=== PATIENT | female | born 1985 | race Two or more races ===

== ENCOUNTER 2023-11-02 08:30 | Day surgery (SDC) | payer BC, OTHER ==
[~2023-11-02 08:30] MED LIST: Dexamethasone 4 MG/ML 5 ML MDV ONE; Ondansetron 4 MG/2 ML SDV ONE; Propofol 200 MG/20 ML SDV ONE; Sodium Chloride 0.9% 10 ML Syringe FLUSH PRN; Sodium Chloride 0.9% 10 ML Syringe FLUSH SCH; ceFAZolin 2 GM Vial ONE; fentaNYL 100 MCG/2 ML SDV ONE
[2023-11-02] MEDS ORDERED: Lidocaine 1% 4 ML ONE (08:38)
[2023-11-02] MEDS: Lactated Ringers 1,000 ML IV SCH (09:10)
[2023-11-02] MEDS ORDERED: HYDROmorphone 0.5 MG/0.5 ML Syringe IVPUSH PRN (09:24)
[2023-11-02] MEDS ORDERED: Ondansetron 4 MG/2 ML SDV IVPUSH PRN (09:24)
[2023-11-02] MEDS ORDERED: EPINEPHrine 1 MG/ML SDV ONE (09:28)
[2023-11-02] MEDS ORDERED: Midazolam 1 MG/ML 2 ML SDV ONE (09:28)
[2023-11-02] MEDS ORDERED: dexmedeTOMIDine HCl 200 MCG/2 ML SDV ONE (11:23)
[2023-11-02] MEDS: EPINEPHrine 1 MG/ML SDV ONE (11:41)
[2023-11-02] MEDS ORDERED: Ketorolac 30 MG/ML SDV ONE (11:42)
[2023-11-02] MEDS: Bupivacaine 0.25% 10 ML SDV ONE (11:48)
[2023-11-02] MEDS: fentaNYL 100 MCG/2 ML SDV IVPUSH PRN (12:19)
[2023-11-02] MEDS: Acetaminophen/HYDROcodone 325-5 MG Tab PO PRN (13:37)
[2023-11-02 13:58] VITALS: BP 105/70; PULSE 75
== END 2023-11-02 13:45 | disposition home or self-care (01) ==
LOC: JD.SDS 08:30
PROVIDERS: ATTEND Orthopaedic Surgery
DX: M22.42 Chondromalacia patellae, left knee (principal); F32.A Depression, unspecified; F41.9 Anxiety disorder, unspecified; Z79.899 Other long term (current) drug therapy; Z88.8 Allergy status to other drugs, medicaments and biological substances
CPT/HCPCS: 29877; A9270; J0171; J0665; J0690; J1100; J1885; J2250; J2405; J2704; J3010; J7120; 01400; J3490

== ENCOUNTER 2024-01-07 20:53 | Emergency (ER) | payer OTHER ==
[2024-01-07 21:10] VITALS: BP 132/74; PULSE 77
[2024-01-07 21:46] LABS: BASOPHILS PERCENT AUTO 0.6 % (0.0-1.0); EOSINOPHILS ABSOLUTE AUTO 0.3 K/mm3 (0.0-0.4); HEMATOCRIT 33.5 % (37.0-47.0); HEMOGLOBIN 10.5 gm/dl (12.0-16.0); IMMATURE GRAN ABSOLUTE AUTO 0.01 K/mm3 (0.00-0.05); IMMATURE GRAN PERCENT AUTO 0.2 % (0.0-0.4); LYMPHOCYTES ABSOLUTE AUTO 2.3 K/mm3 (1.0-4.8); LYMPHOCYTES PERCENT AUTO 36.4 % (24.0-44.0); MEAN CORPUSCULAR HEMOGLOBIN 25.5 pg (28.0-32.0); MEAN CORPUSCULAR HGB CONC 31.3 g/dl (32.0-36.0); MEAN CORPUSCULAR VOLUME 81.5 fl (83.0-99.0); MEAN PLATELET VOLUME 9.9 fl (9.4-12.3); MONOCYTES ABSOLUTE AUTO 0.5 K/mm3 (0.0-0.8); MONOCYTES PERCENT AUTO 7.2 % (0.0-8.0); NEUTROPHILS ABSOLUTE AUTO 3.2 K/mm3 (1.8-7.7); NEUTROPHILS PERCENT AUTO 50.6 % (41.0-71.0); PLATELET COUNT,PLT 224 K/mm3 (150-400); RED BLOOD CELL COUNT 4.11 M/mm3 (4.10-5.30); WHITE BLOOD CELL COUNT,WBC 6.37 K/mm3 (3.9-11.3)
== END 2024-01-07 22:26 | disposition home or self-care (01) ==
LOC: JD.ED 20:53
DX: R04.0 Epistaxis (principal); Z79.899 Other long term (current) drug therapy; Z88.8 Allergy status to other drugs, medicaments and biological substances
CPT/HCPCS: 36415; 85025; 99283

== ENCOUNTER 2024-01-27 06:15 | Day surgery (SDC) | payer OTHER ==
[~2024-01-27 06:15] MED LIST changes: +Ketorolac 30 MG/ML SDV ONE; +Lactated Ringers 1,000 ML ONE; +Midazolam 1 MG/ML 2 ML SDV ONE
[2024-01-27] MEDS: Lactated Ringers 1,000 ML IV SCH (06:35)
[2024-01-27] MEDS: Scopalamine 1mg/3day Transdermal Patch TRDERM ONE (06:51)
[2024-01-27 06:58] LABS: INR 0.97; PROTHROMBIN TIME 10.3 SECONDS (9.7-12.0)
[2024-01-27 06:59] LABS: PTT,PARTIAL THROMBOPLSTIN TIME 23.5 SECONDS (21.7-31.4)
[2024-01-27] MEDS ORDERED: Sodium Chloride 0.9% 100 ML ONE (08:05)
[2024-01-27] MEDS ORDERED: EPINEPHrine 1 MG/ML SDV ONE (08:07)
[2024-01-27] MEDS ORDERED: Ropivacaine 0.5% 5 MG/ML 30 ML SDV ONE (08:07)
[2024-01-27] MEDS ORDERED: ePHEDrine 50 MG/ML SDV ONE (08:09)
[2024-01-27] MEDS ORDERED: Phenylephrine 1% 10 MG/ML SDV ONE (08:21)
[2024-01-27] MEDS ORDERED: Ondansetron 4 MG/2 ML SDV IVPUSH PRN (08:30)
[2024-01-27] MEDS ORDERED: Propofol 200 MG/20 ML SDV ONE (08:33)
[2024-01-27] MEDS: Morphine 8 MG, EPINEPHrine 0.3 MG, Cefuroxime 750 MG, Ketorolac 30 MG, Sodium Chloride ... PRN (08:53)
[2024-01-27] MEDS: Tranexamic Acid 1,000 MG/10 ML Vial ONE (08:58)
[2024-01-27] MEDS: oxyCODONE 5 MG Tab PO PRN (10:07)
[2024-01-27] MEDS: HYDROmorphone 0.5 MG/0.5 ML Syringe IVPUSH PRN (10:10)
[2024-01-27] MEDS: fentaNYL 100 MCG/2 ML SDV IVPUSH PRN (10:11)
[2024-01-27] MEDS: Vancomycin 1 GM SDV ONE (11:15)
[2024-01-27 11:58] VITALS: BP 115/77; PULSE 84
== END 2024-01-27 12:28 | disposition home or self-care (01) ==
LOC: JD.SJHSC 06:15
PROVIDERS: ATTEND Orthopaedic Surgery
DX: M22.2X2 Patellofemoral disorders, left knee (principal); F41.9 Anxiety disorder, unspecified; F32.A Depression, unspecified; Z79.899 Other long term (current) drug therapy; Z88.8 Allergy status to other drugs, medicaments and biological substances
CPT/HCPCS: 0055T; 27599; 36415; 64447; 73560; 85610; 85730; 97110; 97116; 97161; A9270; J0171; J0690; J0697; J1100; J1171; J1885; J2250; J2270; J2371; J2405; J2704; J2795; J3010; J3490; J7120; 01360